=== PATIENT | male | born 1980 | race Caucasian/White ===

== ENCOUNTER 2025-07-18 00:59 | Emergency (ER) | payer SELFPAY ==
[~2025-07-18] VITALS: Ht 185.4 cm; Wt 85.3 kg
[2025-07-18 01:03] VITALS: BP 111/80
[2025-07-18 01:41] VITALS: BP 111/80; TEMP 98; O2SAT 95
== END 2025-07-18 01:40 | disposition home or self-care (01) ==
LOC: ER 01:12
DX: S93.401A Sprain of unspecified ligament of right ankle, initial encounter (principal); X50.1XXA Overexertion from prolonged static or awkward postures, initial encounter; Y93.89 Activity, other specified; Y92.89 Other specified places as the place of occurrence of the external cause; Y99.9 Unspecified external cause status
CPT/HCPCS: 73610; A4606; A4663